=== PATIENT | male | born 1975 | race Caucasian/White ===

== ENCOUNTER 2018-08-13 20:35 | Emergency (ER) | payer OTHER ==
[~2018-08-13] VITALS: Ht 188 cm; Wt 91.8 kg
[~2018-08-13 20:35] MED LIST: HYDROCODONE-AP1 EAC6 PO; TYLENOL325 MG PO; ZOFRAN ODT4 MG PO
[2018-08-13 21:00] LABS: ABSOLUTE NEUTROPHILS 8.7 thou/uL (1.4-8.2); BASOPHILS 0.9 % (0.0-2.0); EOSINOPHILS 0.3 % (0.0-3.0); HEMATOCRIT 39.4 % (42.0-52.0); HEMOGLOBIN 13.6 gm/dL (14.0-18.0); LYMPHOCYTES 17.7 % (24.0-44.0); MCH 30.6 pg (26.0-34.0); MCHC 34.5 g/dL (28.0-37.0); MCV 88.6 fL (80.0-100.0); MONOCYTES 9.9 % (1.0-8.0); PLATELET COUNT 264 thou/uL (150-400); POLYS 71.2 % (36.0-66.0); RBC 4.45 mil/uL (4.50-6.00); RDW 13.3 % (10.5-14.5); WBC 12.2 thou/uL (4.0-11.0)
[2018-08-13 21:11] LABS: CALCIUM 9.3 mg/dL (8.5-10.1); CREATININE 1.2 mg/dL (0.7-1.3); POTASSIUM 3.8 mmol/L (3.5-5.1)
[2018-08-13 21:13] LABS: TOTAL BILIRUBIN 0.4 mg/dL (<0.1-1.0); TOTAL PROTEIN 7.6 g/dL (6.4-8.2)
[2018-08-13 21:34] LABS: URINE BILIRUBIN NEGATIVE (Negative); URINE BLOOD NEGATIVE (Negative); URINE CLARITY CLEAR; URINE COLOR YELLOW; URINE GLUCOSE-RANDOM* NEGATIVE (Negative); URINE KETONES NEGATIVE (Negative); URINE LEUKOCYTES-REFLEX NEGATIVE (Negative); URINE NITRITE-REFLEX NEGATIVE (Negative); URINE PROTEIN (DIPSTICK) NEGATIVE (Negative); URINE SPECIFIC GRAVITY >= 1.030 (1.005-1.035); URINE UROBILINOGEN 0.2 E.U./dl (0.2-1.0)
[2018-08-13] MEDS ORDERED: CIPRO500 MG PO (23:56)
[2018-08-13] MEDS ORDERED: FLAGYL500 MG PO (23:56)
[2018-08-14] MEDS ORDERED: PERCOCET PO (00:01)
== END 2018-08-14 00:31 | disposition home or self-care (01) ==
LOC: ER 20:35
PROVIDERS: Physician Assistant
DX: K57.92 Diverticulitis of intestine, part unspecified, without perforation or abscess without bleeding (principal); N20.0 Calculus of kidney; Z87.891 Personal history of nicotine dependence; Z87.442 Personal history of urinary calculi

== ENCOUNTER 2018-11-22 19:00 | Emergency (ER) | payer OTHER ==
[~2018-11-22] VITALS: Ht 188 cm; Wt 93.4 kg
[~2018-11-22 19:00] MED LIST changes: +CIPRO500 MG PO; +FLAGYL500 MG PO; +PERCOCET PO
[2018-11-22 19:52] LABS: ABSOLUTE NEUTROPHILS 6.2 thou/uL (1.4-8.2); BASOPHILS 0.6 % (0.0-2.0); EOSINOPHILS 0.8 % (0.0-3.0); HEMATOCRIT 39.6 % (42.0-52.0); LYMPHOCYTES 21.2 % (24.0-44.0); MCH 31.2 pg (26.0-34.0); MCHC 35.3 g/dL (28.0-37.0); MCV 88.4 fL (80.0-100.0); MONOCYTES 11.6 % (1.0-8.0); PLATELET COUNT 258 thou/uL (150-400); POLYS 65.8 % (36.0-66.0); RBC 4.48 mil/uL (4.50-6.00); WBC 9.4 thou/uL (4.0-11.0)
[2018-11-22 19:53] LABS: URINE CLARITY CLEAR; URINE COLOR AMBER; URINE SPECIFIC GRAVITY > 1.030 (1.005-1.035)
[2018-11-22 19:54] LABS: URINE BILIRUBIN NEGATIVE (Negative); URINE BLOOD TRACE (Negative); URINE GLUCOSE-RANDOM* NEGATIVE (Negative); URINE KETONES 1+ (Negative); URINE LEUKOCYTES-REFLEX NEGATIVE (Negative); URINE NITRITE-REFLEX NEGATIVE (Negative); URINE PROTEIN (DIPSTICK) NEGATIVE (Negative); URINE UROBILINOGEN 0.2 E.U./dl (0.2-1.0)
[2018-11-22 20:01] LABS: CALCIUM 9.6 mg/dL (8.5-10.1); POTASSIUM 3.7 mmol/L (3.5-5.1)
[2018-11-22 20:06] LABS: ALBUMIN 3.8 g/dL (3.4-5.0); TOTAL BILIRUBIN 0.9 mg/dL (<0.1-1.0); TOTAL PROTEIN 8.2 g/dL (6.4-8.2)
[2018-11-22] MEDS ORDERED: FLAGYL500 M1 PO (21:01)
[2018-11-22] MEDS ORDERED: CIPRO500 MG PO (21:01)
[2018-11-22] MEDS ORDERED: PERCOCET 5-3251 EACH PO (21:01)
[2018-11-22] MEDS ORDERED: SENNA-DOCUSATE1 EAC1 PO (21:01)
[2018-11-22] MEDS ORDERED: ONDANSETRON HCL4 M2 PO (21:03)
[2018-11-22 21:31] VITALS: BP 117/78
== END 2018-11-22 21:32 | disposition home or self-care (01) ==
LOC: ER 19:00
PROVIDERS: Physician Assistant
DX: K57.92 Diverticulitis of intestine, part unspecified, without perforation or abscess without bleeding (principal); Z87.891 Personal history of nicotine dependence; Z87.442 Personal history of urinary calculi